=== PATIENT | female | born 1990 | race African-American/Black ===

== ENCOUNTER 2020-03-02 19:50 | Emergency (ER) | payer MEDICAID ==
[~2020-03-02] VITALS: Ht 167.6 cm; Wt 69.0 kg
[2020-03-02] MEDS ORDERED: METHYLPREDNISOLONE SOD SUCC 125 MG/2 ML VIAL IV STA (21:00)
[2020-03-02] MEDS ORDERED: ALBUTEROL 6.7GM HFA INHALER ORI ONE ×2 (21:00→21:15)
[2020-03-02] MEDS ORDERED: MAGNESIUM 2 G PREMIX 50 ML IV ONE (21:00)
[2020-03-02] MEDS ORDERED: ALBUTEROL (0.083%) 2.5MG/3ML NEB HHN STA (21:50)
[2020-03-02] MEDS ORDERED: IPRATROPIUM BROMIDE (0.02%) 0.5MG/2.5ML NEB HHN STA (21:50)
[2020-03-02] MEDS ORDERED: ACETAMINOPHEN 325MG TABLET PO ONE (22:15)
[2020-03-02] MEDS ORDERED: IBUPROFEN 400MG TABLET PO ONE (22:15)
[2020-03-02] MEDS ORDERED: HYDROCODONE/ACETAMINOPHEN 5/325MG TABLET PO ONE (23:00)
[2020-03-03 00:43] VITALS: BP 128/72
== END 2020-03-03 00:45 | disposition home or self-care (01) ==
LOC: ER 19:50
DX: J45.909 Unspecified asthma, uncomplicated (principal); F17.290 Nicotine dependence, other tobacco product, uncomplicated; Z98.890 Other specified postprocedural states
CPT/HCPCS: 71045; 94644; 96365; 96366; 96375; 99285; J2930; J3475; Z7610; 94640